=== PATIENT | female | born 1975 | race Caucasian/White ===

== ENCOUNTER 2019-03-27 11:07 | Day surgery (SDC) | payer BC, OTHER ==
[2019-03-24 10:57] VITALS: BMI 30.7
[2019-03-27] MEDS ORDERED: BACITRACIN 15 GM TUBE TOPICAL OINTMENT ONE (11:35)
[2019-03-27] MEDS ORDERED: MIDAZOLAM HCL 2 MG/2 ML SINGLE DOSE VIAL ONE ×2 (14:01)
[2019-03-27] MEDS ORDERED: PROPOFOL 20 ML ONE ×2 (14:13)
--- NOTE | 2019-03-27 14:25 | OP ---
Operative Note - Note: Operative Date: 03/27/19 Operation: Left renal stone Findings: 5 mm mid pole left renal stone Post-Operative Diagnosis: Same as Pre-op Surgeon: Ilya Elise Anesthesia: Fractional Estimated Blood Loss (mls): 0 Operative Report Dictated: Yes
[2019-03-27 14:40] VITALS: TEMP 98.4
[2019-03-27 15:38] VITALS: BP 130/74; PULSE 80
--- NOTE | 2019-03-27 18:33 | OP ---
DATE OF OPERATION: 03/27/2019 PREOPERATIVE DIAGNOSIS: Left renal stone. POSTOPERATIVE DIAGNOSIS: Left renal stone. PROCEDURE: Left extracorporeal shock-wave lithotripsy. ATTENDING: Jennifer Dickerson MD ANESTHESIA: Fractional. DESCRIPTION OF PROCEDURE: Patient was brought in the operating room and placed in a supine position on the operating room table. Ultrasonography and fluoroscopy were performed. A 5-mm left mid pole stone was identified. At this point, shock-wave lithotripsy was started; 2500 3000 impulses at 17 of power were administered to the stone with excellent fragmentation of the stone noted under real time ultrasonography and fluoroscopy. The patient tolerated the procedure very well. There were no complications noted. DISPOSITION: To the recovery room. JENNIFER DICKERSON M.D. [id number]
== END 2019-03-27 15:30 | disposition home or self-care (01) ==
LOC: JASU-SURG 11:07
PROVIDERS: ATTEND Urology
PROC: 0TF4XZZ Fragmentation in Left Kidney Pelvis, External Approach (ICD-10-PCS; principal; 2019-03-27 13:15)
DX: N20.0 Calculus of kidney (principal)
CPT/HCPCS: 84703

== ENCOUNTER 2020-04-22 04:46 | Day surgery (SDC) | payer BC, OTHER ==
[2020-04-18 17:36] VITALS: BMI 32.3
[2020-04-22] MEDS ORDERED: PROPOFOL 20 ML ONE ×2 (08:14)
[2020-04-22] MEDS ORDERED: SUCCINYLCHOLINE CHLORIDE 200 MG/10 ML SYRINGE ONE (08:14)
[2020-04-22] MEDS ORDERED: MIDAZOLAM HCL 2 MG/2 ML SINGLE DOSE VIAL ONE ×3 (08:14→08:27)
[2020-04-22] MEDS ORDERED: DEXAMETHASONE SOD PHOSPHATE 4 MG/1 ML VIAL ONE (08:38)
[2020-04-22 09:02] VITALS: PULSE 86; TEMP 97.5
[2020-04-22 11:38] VITALS: BP 124/80
== END 2020-04-22 10:15 | disposition home or self-care (01) ==
LOC: JASU-SURG 04:46
PROVIDERS: ATTEND Urology
PROC: 0TF4XZZ Fragmentation in Left Kidney Pelvis, External Approach (ICD-10-PCS; principal; 2020-04-22 08:00)
DX: N20.0 Calculus of kidney (principal)
CPT/HCPCS: 84703

== ENCOUNTER 2022-12-14 05:37 | Day surgery (SDC) | payer BC, OTHER ==
[2022-12-07 17:30] VITALS: BMI 30.7
[2022-12-14] MEDS ORDERED: MIDAZOLAM HCL 2 MG/2 ML SINGLE DOSE VIAL ONE ×2 (13:41→13:57)
[2022-12-14] MEDS ORDERED: SUCCINYLCHOLINE CHLORIDE 200 MG/10 ML SYRINGE ONE (13:42)
[2022-12-14] MEDS ORDERED: PROPOFOL 20 ML ONE (13:43)
[2022-12-14] MEDS ORDERED: ONDANSETRON 4 MG/2 ML VIAL ONE (13:49)
[2022-12-14 14:32] VITALS: RESP 20
[2022-12-14 15:46] VITALS: BP 115/75; PULSE 74; TEMP 97.6
== END 2022-12-14 15:49 | disposition home or self-care (01) ==
LOC: JASU-SURG 05:37
PROVIDERS: ATTEND Urology
PROC: 0TF4XZZ Fragmentation in Left Kidney Pelvis, External Approach (ICD-10-PCS; principal; 2022-12-14 14:00)
DX: N20.0 Calculus of kidney (principal)